=== PATIENT | female | born 1995 | race Two or more races ===

== ENCOUNTER 2017-06-05 21:19 | Inpatient (IN) | payer OTHER ==
--- NOTE | 2017-06-05 22:13 | C.PDOC ---
History Of Present Illness 21 yo female , 26 wks , w/o significant PMHx come in for evaluation of cold sx since yesterday associated with bodyaches, headache, fever, chills, runny nose, dry cough. Pt admits, " talk to OB over the phone and got RX: TAmiflu". Pt started Tamiflu since today AM, took 2 doses. Otherwise, pt denies severe headache, neck pain, rash, visual changes, drooling, trismus, denies CP, SOB, cough, wheezing, abd. pain, V/D, back pain, UTI sx, rash. Ambulate to Ed for evaluation, not in any apparent distress. Time Seen by Provider: 06/05/17 21:43 Chief Complaint (Nursing): Flu-like Symptoms History Per: Patient Onset/Duration Of Symptoms: Gradual Past Medical History Reviewed: Historical Data, Nursing Documentation, Vital Signs Vital Signs: Last Vital Signs Temp 98.3 F 06/06/17 05:30 Pulse 114 H 06/06/17 05:30 Resp 16 06/06/17 05:30 BP 96/58 L 06/06/17 05:30 Pulse Ox 98 06/06/17 05:30 - Medical History PMH: Anemia (iron deficiency) Surgical History: No Surg Hx Family History: States: No Known Family Hx - Social History Hx Tobacco Use: No Hx Alcohol Use: No Hx Substance Use: No - Immunization History Hx Tetanus Toxoid Vaccination: No Hx Influenza Vaccination: No Hx Pneumococcal Vaccination: No Review Of Systems Except As Marked, All Systems Reviewed And Found Negative. Constitutional: Positive for: Fever, Chills, Malaise ENT: Positive for: Nose Discharge, Nose Congestion, Throat Pain. Negative for: Ear Discharge Cardiovascular: Negative for: Chest Pain, Palpitations Respiratory: Positive for: Cough. Negative for: Shortness of Breath, Wheezing Gastrointestinal: Negative for: Nausea, Vomiting, Abdominal Pain, Diarrhea Genitourinary: Negative for: Dysuria, Incontinence Musculoskeletal: Negative for: Neck Pain, Back Pain Skin: Negative for: Rash Neurological: Positive for: Headache. Negative for: Weakness, Numbness, Altered Mental Status, Dizziness Physical Exam - Physical Exam Appears: Well, Non-toxic, No Acute Distress Skin: Normal Color, Warm, Dry, No Rash Head: Normacephalic Eye(s): bilateral: PERRL Ear(s): Bilateral: Normal Nose: No Flaring, Discharge Oral Mucosa: Moist, No Drooling Tongue: Normal Appearing Lips: Normal Appearing Throat: Erythema (mild B/L), No Exudate, No Drooling Neck: Trachea Midline, Supple, Other ((-) meningeal sign) Cardiovascular: Rhythm Regular, No Murmur, No JVD Respiratory: No Decreased Breath Sounds, No Accessory Muscle Use, No Stridor, No Wheezing Gastrointestinal/Abdominal: Soft, No Tenderness, No Distention, No Guarding, No Rebound, Other ((+) Gravid) Back: No CVA Tenderness Extremity: Normal ROM, No Pedal Edema, No Deformity, No Swelling Neurological/Psych: Oriented x3, Normal Speech ED Course And Treatment - Laboratory Results Result Diagrams: 06/05/17 22:40 06/05/17 22:40 O2 Sat by Pulse Oximetry: 97 Pulse Ox Interpretation: Normal Progress Note: On re-evaluation, pt resting comforatbly, not in any apparent distress. Fever improved, hemodynamicaly stable. Non-toxic. PUlseOx 97% RA. ENT: No acute findings. neck: SUpple, (-) meningeal sign. LUngs: CTA B/L, BS equal B/L. Abd: Gravid. Blood work review, anemia noted ( pt recall hx of anemia), dehydration. Influenza A (+). Case discussed with pt's OB and admission arranged to post- floor. Pt agree swith plan. Disposition - Disposition Disposition: HOSPITALIZED Disposition Time: 23:20 Condition: FAIR - Clinical Impression Clinical Impression: Influenza A, Dehydration
[2017-06-05] MEDS ORDERED: Sodium Chloride 0.9% 1,000 ML IV ONE (22:22)
[2017-06-05 22:42] LABS: BASO % 0.2 % (0.0-2.0); LYMPH # 1.6 K/uL (1.0-4.3); LYMPH % 16.5 % (20.0-40.0); MEAN CORPUSCULAR HEMOGLOBIN 22.7 pg (27.0-31.0); MEAN CORPUSCULAR HGB CONC 32.1 g/dL (33.0-37.0); MEAN PLATELET VOLUME 7.4 fL (7.2-11.7); MONO # 1.9 K/uL (0.0-0.8); MONO % 19.2 % (0.0-10.0); NEUT # 6.3 K/uL (1.8-7.0); NEUT % 64.1 % (50.0-75.0); NRBC % 0.1 % (0.0-2.0); RBC 4.2 Mil/uL (3.80-5.20); RED CELL DISTRIBUTION WIDTH 16.3 % (11.5-14.5); WHITE BLOOD COUNT 9.8 K/uL (4.8-10.8)
[2017-06-05] MEDS ORDERED: Sodium Chloride 0.9% 1,000 ML ONE (22:44)
[2017-06-05 22:46] LABS: HEMOGLOBIN 9.5 g/dL (11.0-16.0)
[2017-06-05 22:47] LABS: MEAN CELL VOLUME 70.5 fL (81.0-99.0)
[2017-06-05 22:48] LABS: SQUAMOUS EPITHIAL 5 /hpf (0-5); URINE BACTERIA MANY (<OCC); URINE BILIRUBIN NEGATIVE (NEGATIVE); URINE BLOOD NEGATIVE (NEGATIVE); URINE CLARITY Hazy (Clear); URINE COLOR Yellow (YELLOW); URINE GLUCOSE (UA) 1+ mg/dL (Normal); URINE LEUKOCYTE ESTERASE NEG Leu/uL (Negative); URINE NITRATE NEGATIVE (NEGATIVE); URINE PROTEIN NEGATIVE (NEGATIVE)
[2017-06-05 22:55] LABS: BLOOD UREA NITROGEN 5 mg/dL (7-17); CALCIUM 8.3 mg/dl (8.6-10.4); GFR AFRICAN-AMERICAN > 60; GFR NON-AFRICAN AMERICAN > 60
[2017-06-06] MEDS ORDERED: Sodium Chloride 0.9% 1,000 ML IV ONE ×2 (04:52→22:06)
[2017-06-06] MEDS ORDERED: Folic Acid 1 MG, Thiamine 100 MG, Multivitamin (MVI) 10 ML in Dextrose 5% In Water 1,00... IV ONE (05:45)
--- NOTE | 2017-06-06 06:09 | RAD ---
EXAM: XR Chest, 1 View CLINICAL HISTORY: 21 years old, female; Signs and symptoms; Fever; Patient HX: Pt 26 weeks ; Additional info: Fever in R/O [place] TECHNIQUE: Frontal view of the chest. COMPARISON: No relevant prior studies available. FINDINGS: Lungs: No consolidation. Pleural space: No pleural effusion. No pneumothorax. Heart: No cardiomegaly. Mediastinum: Unremarkable. Bones/joints: No acute fracture. IMPRESSION: No definite acute cardiopulmonary disease.
[2017-06-06] MEDS: Potassium Chl 40 mEq in D5-1/2 1,000 ML IV SCH ×3 (06:48→21:00)
--- NOTE | 2017-06-06 19:55 | CP.PCM.HP ---
History of Present Illness - History of Present Illness History of Present Illness: 21 y/o @ 26.3 wks [place] [facility] 09/09/17 c/o of fever, chills, body aches and non productive cough x 2 days, unimproved iwth tyenolon and over the counter medicaion. pt was started on tamiflu and advised to come to ER due to persisten fever and not feeling well. Upon arrival to ER pt complaiend of fever, chills, body aches, and non productive cough wiht sore throuat. pt denies any nause, vomiting, congestion, cp, sob, palpations, bowel or bladder complaints, no dairrhea. pt reports has poor appetite. pt denies any sick contacts, and declined flu vaccine. Ante: uncomplicated care OB: P0 [employer]: Denies hx of abnormla pap, fibroid, ovarian cyst, STI PMH: Denies PSH: Denies FHX: non contributoyr SHX: negative etoh/tobacco/drugs MEDS: PNV, Iron (d/c over past few days due to illness) NKDA Present on Admission - Present on Admission Any Indicators Present on Admission: No Review of Systems - Constitutional Constitutional: Fatigue. absent: As Per HPI, Anorexia, Chills, Daytime Sleepiness, Excessive Sweating, Fever, Frequent Falls, Headache, Increased Appetite, Lethargy, Malaise, Night Sweats, Snoring, Sleep Apnea, Weight Gain, Weight Loss, Weakness, Other - EENT Nose/Mouth/Throat: Sore Throat. absent: As Per HPI, Epistaxis, Nasal Congestion , Nasal Discharge, Nasal Obstruction, Nasal Trauma, Nose Pain, Post Nasal Drip, Sinus Pain, Sinus Pressure, Bleeding Gums, Change in Voice, Dental Pain, Dry Mouth, Dysphagia, Halitosis, Hoarsness, Lip Swelling, Mouth Lesions, Mouth Pain , Odynophagia, Throat Swelling, Tongue Swelling, Facial Pain, Neck Pain, Neck Mass, Other - Breasts Breasts: absent: As Per HPI, Change in Shape, Mass, Pain, Nipple Discharge, Nipple Inversion, Skin Changes, Swelling, Other - Cardiovascular Cardiovascular: absent: As Per HPI, Acrocyanosis, Chest Pain, Chest Pain at Rest , Chest Pain with Activity, Claudication, Diaphoresis, Dyspnea, Dyspnea on Exertion, Edema, Irregular Heart Rhythm, Pain Radiating to Arm/Neck/Jaw, Leg Edema, Leg Ulcers, Lightheadedness, Orthopnea, Palpitations, Paroxysmal Nocturnal Dyspnea, Pedal Edema, Radiating Pain, Rapid Heart Rate, Slow Heart Rate, Syncope, Other - Respiratory Respiratory: Cough. absent: As Per HPI, Dyspnea, Hemoptysis, Dyspnea on Exertion, Wheezing, Snoring, Stridor, Pain on Inspiration, Chest Congestion, Excessive Mucous Production, Change in Mucous Color, Pain with Coughing, Other - Gastrointestinal Gastrointestinal: absent: As Per HPI, Abdominal Pain, Belching, Bloating, Change in Bowel Habits, Change in Stool Character, Coffee Ground Emesis, Constipation, Cramping, Diarrhea, Dyspepsia, Dysphagia, Early Satiety, Excessive Flatus, Fecal Incontinence, Heartburn, Hematemesis, Hematochezia, Loose Stools, Melena, Nausea, Odynophagia, Temesmus, Vomiting, Other - Genitourinary Genitourinary: absent: As Per HPI, Change in Urinary Stream, Difficulty Urinating, Dysuria, Flank Pain, Hematuria, Pyuria, Nocturia, Urinary Incontinence, Urinary Frequency, Urinary Hesitance, Urinary Urgency, Voiding Freq/Small Amts, Freq UTI, Hx Renal/Bladder Calculi, Hx /Renal Surgery, Bladder Distension, Other - Reproductive: Female Reproductive:Female: Normal Menses - Musculoskeletal Musculoskeletal: Muscle Cramps, Muscle Weakness, Myalgias. absent: As Per HPI, Abnormal Gait, Arthralgias, Atrophy, Back Pain, Deformity, Joint Swelling, Limited Range of Motion, Loss of Height, Neck Pain, Numbness, Radiating Pain into Limb, Stiffness, Tingling, Other - Integumentary Integumentary: absent: As Per HPI, Acne, Alopecia, Bleeding Lesions, Change in Hair, Change in Nails, Change in Pigmentation, Changing Lesions, Dry Skin, Erythema, Furuncle, Hirsutism, Lesions, New Lesions, Non-Healing Lesions, Photosensitivity, Pruritus, Rash, Skin Pain, Skin Ulcer, Sores, Striae, Swelling , Unusual Bruising, Wounds, Jaundice, Other - Neurological Neurological: absent: As Per HPI, Abnormal Gait, Abnormal Hearing, Abnormal Movements, Abnormal Speech, Behavioral Changes, Burning Sensations, Confusion, Convulsions, Disequilibrium, Dizziness, Numbness, Focal Weakness, Frequent Falls , Headaches, Lack of Coordination, Loss of Vision, Memory Loss, Paresthesias, Radicular Pain, Restless Legs, Sensory Deficit, Syncope, Tingling, Tremor, Vertigo, Weakness, Other Visual Disturbances, Other - Endocrine Endocrine: absent: As Per HPI, Change in Body Appearance, Change in Libido, Cold Intolorance, Deepening of Voice, Excessive Sweating, Fatigue, Flushing, Heat Intolorance, Increase in Ring/Shoe/Hat Size, Palpitations, Polydipsia, Polyphagia, Polyuria, Other - Hematologic/Lymphatic Additional comments: +Fevers Past Patient History - Infectious Disease Hx of Infectious Diseases: None - Past Medical History & Family History Past Medical History?: No Past Family History: Reviewed and not pertinent - Past Social History Smoking Status: Never Smoked Chewing Tobacco Use: No Cigar Use: No Alcohol: None Home Situation {Lives}: With Family Domestic Violence: Negative - CARDIAC Hx Cardiac Disorders: No - HEMATOLOGICAL/ONCOLOGICAL Hx Anemia: Yes (iron deficiency) - PSYCHIATRIC Hx Substance Use: No Meds Allergies/Adverse Reactions: Allergies Allergy/AdvReac Type Severity Reaction Status Date / Time No Known Allergies Allergy Unverified 06/05/17 21:40 Physical Exam - Constitutional Appears: Well, Non-toxic - Head Exam Head Exam: ATRAUMATIC, NORMAL INSPECTION - Eye Exam Eye Exam: EOMI, Normal appearance - ENT Exam ENT Exam: Mucous Membranes Dry, Normal Oropharynx - Neck Exam Neck exam: Positive for: Normal Inspection - Respiratory Exam Respiratory Exam: Clear to Auscultation Bilateral, NORMAL BREATHING PATTERN - Cardiovascular Exam Cardiovascular Exam: REGULAR RHYTHM, +S1, +S2 - GI/Abdominal Exam GI & Abdominal Exam: Normal Bowel Sounds, Soft Additional comments: non tender, no guarding, no rebound tenderness, no rigidty, +BS +FHR 150bpm VE:delcined - Extremities Exam Extremities exam: Negative for: calf tenderness, full ROM, joint swelling, normal capillary refill, normal inspection, pedal edema, tenderness, pedal pulses present - Back Exam Back exam: NORMAL INSPECTION - Neurological Exam Neurological exam: Alert, CN II-XII Intact, Oriented x3 - Psychiatric Exam Psychiatric exam: Normal Affect, Normal Mood - Skin Skin Exam: Dry, Intact, Normal Color, Warm Results - Vital Signs Recent Vital Signs: Last Vital Signs Temp 98.8 F 06/06/17 12:47 Pulse 114 H 06/06/17 12:47 Resp 18 06/06/17 12:47 BP 101/56 L 06/06/17 12:47 Pulse Ox 97 06/06/17 12:47 - Labs Result Diagrams: 06/05/17 22:40 06/05/17 22:40 Labs: Laboratory Results - last 24 hr 06/05/17 06/05/17 06/05/17 22:40 22:40 22:40 WBC 9.8 RBC 4.20 Hgb 9.5 L D Hct 29.6 L MCV 70.5 L D MCH 22.7 L MCHC 32.1 L RDW 16.3 H Plt Count 266 MPV 7.4 Neut % (Auto) 64.1 Lymph % (Auto) 16.5 L [place] % (Auto) 19.2 H Eos % (Auto) 0.0 Baso % (Auto) 0.2 Neut # 6.3 Lymph # 1.6 [place] # 1.9 H Eos # 0.0 Baso # 0.0 Sodium 129 L Potassium 3.2 L Chloride 99 Carbon Dioxide 21 L Anion Gap 12 BUN 5 L Creatinine 0.6 L Est GFR ( Amer) > 60 Est GFR (Non-Af Amer) > 60 Random Glucose 131 H Calcium 8.3 L Urine Color Urine Clarity Urine pH Ur Specific [place] Urine Protein Urine Glucose (UA) Urine Ketones Urine Blood Urine Nitrate Urine Bilirubin Urine Urobilinogen Ur Leukocyte Esterase Urine WBC (Auto) Urine RBC (Auto) Ur Squamous Epith Cells Urine Bacteria Urine HCG, Qual Influenza Typ A,B (EIA) Pos for influenza a H 06/05/17 06/05/17 22:40 22:41 WBC RBC Hgb Hct MCV MCH MCHC RDW Plt Count MPV Neut % (Auto) Lymph % (Auto) [place] % (Auto) Eos % (Auto) Baso % (Auto) Neut # Lymph # [place] # Eos # Baso # Sodium Potassium Chloride Carbon Dioxide Anion Gap BUN Creatinine Est GFR ( Amer) Est GFR (Non-Af Amer) Random Glucose Calcium Urine Color Yellow Urine Clarity Hazy Urine pH 6.0 Ur Specific [place] 1.011 Urine Protein Negative Urine Glucose (UA) 1+ Urine Ketones 1+ H Urine Blood Negative Urine Nitrate Negative Urine Bilirubin Negative Urine Urobilinogen 2.0 H Ur Leukocyte Esterase Neg Urine WBC (Auto) 5 Urine RBC (Auto) 4 H Ur Squamous Epith Cells 5 Urine Bacteria Many H Urine HCG, Qual Positive Influenza Typ A,B (EIA) Assessment & Plan (1) Influenza A Assessment and Plan: 1. Admit to [employer] 2. Tamiflu 75mg BID 3. IVH: Banana bag @ 125cc/hr 4. Kdhur x 1 5. AM Labs: CBC, CMP, UA 6. Liquid diet, Advance as tolerated 7. FHR Doppler q shift Status: Acute
[2017-06-06] MEDS ORDERED: guaiFENesin 100 mg/5 ml Syrup UD PO PRN (20:06)
[2017-06-06 20:57] VITALS: RESP 20
[2017-06-07] MEDS: Potassium Chl 40 mEq in D5-1/2 1,000 ML IV SCH ×2 (04:57→13:37)
[2017-06-07 06:53] LABS: BASO % 0.3 % (0.0-2.0); EOS % 0.5 % (0.0-4.0); HEMOGLOBIN 9.2 g/dL (11.0-16.0); LYMPH # 1.8 K/uL (1.0-4.3); LYMPH % 32.2 % (20.0-40.0); MEAN CELL VOLUME 70.7 fL (81.0-99.0); MEAN CORPUSCULAR HEMOGLOBIN 23.3 pg (27.0-31.0); MEAN PLATELET VOLUME 7.7 fL (7.2-11.7); MONO # 0.5 K/uL (0.0-0.8); MONO % 8.8 % (0.0-10.0); NEUT # 3.3 K/uL (1.8-7.0); NEUT % 58.2 % (50.0-75.0); RBC 3.95 Mil/uL (3.80-5.20); RED CELL DISTRIBUTION WIDTH 16.9 % (11.5-14.5); WHITE BLOOD COUNT 5.6 K/uL (4.8-10.8)
[2017-06-07 07:14] LABS: ALB/GLOB RATIO 0.8 (1.0-2.1); ALBUMIN 2.8 g/dL (3.5-5.0); ALT/SGPT 25 U/L (9-52); AST/SGOT 19 U/L (14-36); BLOOD UREA NITROGEN 3 mg/dL (7-17); CALCIUM 8.2 mg/dl (8.6-10.4); GFR AFRICAN-AMERICAN > 60; GFR NON-AFRICAN AMERICAN > 60
[2017-06-07 10:47] LABS: SQUAMOUS EPITHIAL 3 /hpf (0-5); URINE BACTERIA MOD (<OCC); URINE BILIRUBIN NEGATIVE (NEGATIVE); URINE BLOOD NEGATIVE (NEGATIVE); URINE CLARITY Hazy (Clear); URINE COLOR Yellow (YELLOW); URINE GLUCOSE (UA) 1+ mg/dL (Normal); URINE LEUKOCYTE ESTERASE NEG Leu/uL (Negative); URINE NITRATE NEGATIVE (NEGATIVE); URINE PROTEIN NEGATIVE (NEGATIVE); URINE UROBILINOGEN NORMAL mg/dL (0.2-1.0)
[2017-06-07 12:03] VITALS: BP 99/65; PULSE 104; TEMP 97.3; O2SAT 99
== END 2017-06-07 17:15 | disposition home or self-care (01) | DRG 781 ==
LOC: C.ER 21:19 → C.4M 23:21 → C.9E 23:21 → C.5S 06-06 20:06
PROVIDERS: ADMIT Obstetrics & Gynecology; ATTEND Obstetrics & Gynecology
DX: O26.892 Other specified pregnancy related conditions, second trimester (principal); E86.0 Dehydration; J10.1 Influenza due to other identified influenza virus with other respiratory manifestations; Z3A.26 26 weeks gestation of pregnancy

== ENCOUNTER 2017-08-27 19:55 | Emergency (ER) | payer OTHER ==
[2017-08-28 01:08] VITALS: BP 113/67; PULSE 96; RESP 20; TEMP 98.5
== END 2017-08-27 20:50 | disposition home or self-care (01) ==
LOC: C.EROB 19:55
DX: O60.03 Preterm labor without delivery, third trimester (principal); Z3A.38 38 weeks gestation of pregnancy

== ENCOUNTER 2017-08-30 22:58 | Inpatient (IN) | payer OTHER ==
[2017-08-30] MEDS ORDERED: Lactated Ringer's 1,000 ML IV SCH (23:45)
--- NOTE | 2017-08-30 23:47 | OBHP ---
Datetime: 08/30/2017 23:35 IP Adm Impression: Term, intrauterine IP Admit Plan: Observation/Evaluation Admit Comment, IP Provider: 21 yo g1 edc 09/08 presents w/ c/o painful ctxs since 10:30 pm. denies de creased fm, srom, or bleedng. preg sig for GDMA1 pmhx: denies pshx: surgical extraction of wax from ear nkda medic: pnv shx : denies etoh, illicit drug use or tobacco I: 38.5wks Labor eval P: pt d/w dr vogel observe overnight may have nubain with phenergan. Pelvic Type - PN: Adequate Extremities - PN: Normal Abdomen - PN: Normal Heart - PN: Normal Neurologic - PN: Normal HEENT - PN: Normal General - PN: Normal Presentation-Admit: Vertex FHR - Baseline A Provider: 130 EGA AdmitDate IP: 38.5 Vital Signs Provider: Within Normal Limits IP Chief Complaint: Uterine contractions NICHD Variability Prov Fetus A: Moderate 6-25bpm NICHD Accel Fetus A IP Provider: [id number] FHR Category Provider Fetus A: Category I NICHD Decel Fetus A IP Provider: None Dilatation, Provider: 3-4 Effacement, Provider: 90 Station, Provider: -1 Genitourinary Exam: Normal Datetime: 08/27/2017 20:33 Breast - PN: Normal Lungs - PN: Normal Thyroid - PN: Normal Weight - Estimated: 5lbs per pt Membranes, Provider: Intact Contraction Comments Provider: none Gestation - Est Wks by US: 38.0 Pool Provider: Negative Nitrazine Provider: Negative IP Hx Assessment: The History has been Reviewed and is Current
[2017-08-30 23:49] VITALS: BMI 31.8
[2017-08-30] MEDS ORDERED: Nalbuphine 20 mg/ml Inj (1 ml) IVP PRN (23:51)
[2017-08-30] MEDS ORDERED: Promethazine 12.5 mg/10 ml Syrup PO STA (23:58)
[2017-08-31] MEDS ORDERED: Penicillin G 5 Million Unit Vial IVPB ONE ×2 (00:46)
[2017-08-31 00:54] LABS: BASO # 0.1 K/uL (0.0-0.2); BASO % 0.4 % (0.0-2.0); EOS % 0.1 % (0.0-4.0); HEMOGLOBIN 11.9 g/dL (11.0-16.0); LYMPH # 2.3 K/uL (1.0-4.3); LYMPH % 13.8 % (20.0-40.0); MEAN CELL VOLUME 75.3 fL (81.0-99.0); MEAN CORPUSCULAR HEMOGLOBIN 24.8 pg (27.0-31.0); MEAN CORPUSCULAR HGB CONC 32.9 g/dL (33.0-37.0); MEAN PLATELET VOLUME 7.9 fL (7.2-11.7); MONO # 0.9 K/uL (0.0-0.8); MONO % 5.6 % (0.0-10.0); NEUT # 13.2 K/uL (1.8-7.0); NEUT % 80.1 % (50.0-75.0); RBC 4.78 Mil/uL (3.80-5.20); RED CELL DISTRIBUTION WIDTH 17.8 % (11.5-14.5); WHITE BLOOD COUNT 16.5 K/uL (4.8-10.8)
[2017-08-31 01:12] LABS: ALB/GLOB RATIO 0.9 (1.0-2.1); ALBUMIN 3.4 g/dL (3.5-5.0); ALT/SGPT 25 U/L (9-52); AST/SGOT 18 U/L (14-36); BLOOD UREA NITROGEN 12 mg/dL (7-17); CALCIUM 8.9 mg/dl (8.6-10.4); GFR AFRICAN-AMERICAN > 60; GFR NON-AFRICAN AMERICAN > 60
[2017-08-31] MEDS ORDERED: Lidocaine 2% Inj (20ml) ONE (01:12)
--- NOTE | 2017-08-31 01:14 | OBADHP ---
Datetime: 08/30/2017 23:35 Admit Comment, IP Provider: 21 yo g1 edc 09/08 presents w/ c/o painful ctxs since 10:30 pm. denies de creased fm, srom, or bleedng. preg sig for GDMA1 pmhx: denies pshx: surgical extraction of wax from ear nkda medic: pnv shx : denies etoh, illicit drug use or tobacco I: 38.5wks Labor eval P: pt d/w dr voegl observe overnight may have nubain with phenergan. pt spontalusly and rapdily progrssed from 7-->9cm to 10cm admit anstipc ensvd con tcurren gtmagnet Pelvic Type - PN: Adequate Extremities - PN: Normal Abdomen - PN: Normal Heart - PN: Normal Neurologic - PN: Normal HEENT - PN: Normal General - PN: Normal Presentation-Admit: Vertex FHR - Baseline A Provider: 130 Vital Signs Provider: Within Normal Limits IP Chief Complaint: Uterine contractions NICHD Variability Prov Fetus A: Moderate 6-25bpm NICHD Accel Fetus A IP Provider: [id number] FHR Category Provider Fetus A: Category I NICHD Decel Fetus A IP Provider: None Dilatation, Provider: 3-4 Effacement, Provider: 90 Station, Provider: -1 Genitourinary Exam: Normal EGA AdmitDate IP: 38.5 IP Adm Impression: Term, intrauterine IP Admit Plan: Observation/Evaluation Datetime: 08/27/2017 20:33 Breast - PN: Normal Lungs - PN: Normal Thyroid - PN: Normal Weight - Estimated: 5lbs per pt Membranes, Provider: Intact Contraction Comments Provider: none Gestation - Est Wks by US: 38.0 Pool Provider: Negative Nitrazine Provider: Negative IP Hx Assessment: The History has been Reviewed and is Current
[2017-08-31 02:03] LABS: PH,URINE 6.5 (5.0-8.0); URINE BILIRUBIN NEGATIVE (NEGATIVE); URINE BLOOD SMALL (NEGATIVE); URINE CLARITY Clear (Clear); URINE COLOR YELLOW (YELLOW); URINE GLUCOSE (UA) NEGATIVE (Normal); URINE LEUKOCYTE ESTERASE NEGATIVE Leu/uL (Negative); URINE PROTEIN NEGATIVE (NEGATIVE); URINE UROBILINOGEN Normal mg/dL (0.2-1.0)
[2017-08-31 02:04] LABS: URINE BACTERIA RARE (<OCC)
[2017-08-31] MEDS ORDERED: Oxycodone/Acetaminophen 5/325 mg Tab PO PRN (02:07)
--- NOTE | 2017-08-31 02:07 | OBDS ---
DELIVERY PERSONNEL Delivery Doctor: Srini Smith MD Ssis Architect: Ellen Thomas RN MATERNAL INFORMATION Delivery Anesthesia: None Medications in Delivery: PITOCIN 20 UNITS IN LR Estimated Blood Loss (ml): 300 Placenta Cultured: No Maternal Complications: None Provider Comments: pt was fully dilated and pushing, atruamtic, spontaneous delivery of head, tight nuchal x 2 reduced, atruamic, spontanoeus delivery of nateiro followed by poserio shoulder followed b y delier of body. good cry. umbilca cord clamped adn cut. baby handed to mother on abdomen with rn as sistnace. cord blood colected. spotnaeous delivery of intact plaent with membrneas. fundus firm. Goo dhemostais, second degree perineal laceraton noted and repaired iwth 2-0 and 3-0 chromic suture. goo dhemotsis, no compication live male ifnat agpar 9, 9 weight of 5lbs 15 ounces ebl 300ml LABOR SUMMARY EDC: 09/08/2017 00:00 No. Babies in Womb: 1 Attempted: No Labor Anesthesia: None LABOR INFORMATION Reason for Induction: Not Applicable Onset of Labor: 08/30/2017 22:30 Complete Dilatation: 08/31/2017 00:53 Oxytocin: N/A Group B Beta Strep: Negative Antibiotics # of Doses: 1 Antibiotics Time of Last Dose: 0:44 Steroids Given: None Reason Steroids Not Administered: Not Applicable MEMBRANES Membranes Rupture Method: Artificial Rupture of Membranes: 08/31/2017 01:16 Length of Rupture (hrs): 0.10 Amniotic Fluid Color: Light Meconium Amniotic Fluid Amount: Moderate Amniotic Fluid Odor: Normal STAGES OF LABOR Stage 1 hrs: 2 Stage 1 min: 23 Stage 2 hrs: 0 Stage 2 min: 29 Stage 3 hrs: 0 Stage 3 min: 6 Total Time in Labor hrs: 2 Total Time in Labor min: 58 VAGINAL DELIVERY Episiotomy: None Laceration Extension: Second Degree Laceration Type: Perineal Laceration Repair: Yes Initial Vag Sponge Count: 10+1Lap Final Vag Sponge Count: 20+1Lap Initial Vag Sharps Count: 0 Final Vag Sharps Count: 3 Sponge Count Correct: Yes; Vaginal Sweep Performed Sharps Count Correct: Yes Count Comment: correct BABY A INFORMATION Delivery Date/Time: 08/31/2017 01:22 Method of Delivery: Vaginal Born in Route : No : N/A Forceps: N/A Vacuum Extraction: N/A Shoulder Dystocia : No SHOULDER DYSTOCIA BABY A Delivery Date/Time: 08/31/2017 01:22 PRESENTATION/POSITION BABY A Presentation: Cephalic Cephalic Presentation: Vertex Vertex Position: Right Occipital Anterior Breech Presentation: N/A PLACENTA INFORMATION BABY A Placenta Delivery Time : 08/31/2017 01:28 Placenta Method of Delivery: Spontaneous Placenta Status: Delivered SCORES BABY A Heart Rate 1 min: >100 bpm Resp Effort 1 min: Good Cry Reflex Irritability 1 min: Cough or Sneeze or Pulls Away Muscle Tone 1 min: Active Motion Color 1 min: Body [place], Extremities Blue SCORE 1 MIN: 9 Heart Rate 5 min: >100 bpm Resp Effort 5 min: Good Cry Reflex Irritability 5 min: Cough or Sneeze or Pulls Away Muscle Tone 5 min: Active Motion Color 5 min: Body [place], Extremities Blue SCORE 5 MIN: 9 INFANT INFORMATION BABY A Gestational Age at Delivery: 38.6 Gestational Status: Term Infant Outcome : Liveborn Condition : Stable Infant Sex: Male IDENTIFICATION/MEDS BABY A ID Band Number: [id number] ID Band Location: Left Leg; Left Arm Sensor Applied: Yes Sensor Number: [id number] Sensor Location : Cord Clamp Vitamin K Given : Aquamephyton 0.5 mg IM; Left Thigh Erythromycin Given: Given Both Eyes WEIGHT/LENGTH BABY A Infant Birthweight (gms): 2685 Weight (lb): 5 Infant Weight (oz): 15 Length Inches: 19.50 Length cms: 49.5 CORD INFORMATION BABY A No. Cord Vessels: 3 Nuchal Cord : Around Neck x1, Loose Cord Blood Taken: Yes Banking/Donate Info: CORD BLOOD COLLECTED Infant Suction: None ASSESSMENT BABY A Infant Complications: None Physical Findings at Delivery: Within Normal Limits Infant Respirations: Appears Normal Maintenance Job Titles/ALS Called : No Infant Care By: DR MEJIA Transferred To: Remains with Mother
[2017-08-31] MEDS: Oxycodone/Acetaminophen 5/325 mg Tab PO PRN ×2 (05:54→14:04)
[2017-08-31] MEDS: Benzocaine/Menthol 20%-0.5% Topical Spray (60 ml) TOP PRN (06:27)
[2017-08-31 06:39] VITALS: RESP 20
[2017-08-31] MEDS: Multiple Vitamins Tab PO SCH (09:56)
[2017-08-31 11:33] LABS: BASO % 0.1 % (0.0-2.0); HEMOGLOBIN 9.8 g/dL (11.0-16.0); LYMPH # 1.9 K/uL (1.0-4.3); LYMPH % 11.4 % (20.0-40.0); MEAN CELL VOLUME 75.4 fL (81.0-99.0); MEAN CORPUSCULAR HGB CONC 33.2 g/dL (33.0-37.0); MEAN PLATELET VOLUME 7.8 fL (7.2-11.7); MONO % 6.2 % (0.0-10.0); NEUT # 13.6 K/uL (1.8-7.0); NEUT % 82.3 % (50.0-75.0); RBC 3.93 Mil/uL (3.80-5.20); RED CELL DISTRIBUTION WIDTH 17.8 % (11.5-14.5); WHITE BLOOD COUNT 16.5 K/uL (4.8-10.8)
[2017-08-31 11:50] LABS: ALB/GLOB RATIO 0.9 (1.0-2.1); ALBUMIN 2.8 g/dL (3.5-5.0); ALT/SGPT 18 U/L (9-52); AST/SGOT 28 U/L (14-36); BLOOD UREA NITROGEN 8 mg/dL (7-17); CALCIUM 8.8 mg/dl (8.6-10.4); GFR AFRICAN-AMERICAN > 60; GFR NON-AFRICAN AMERICAN > 60
[2017-09-01 08:38] LABS: BASO # 0.1 K/uL (0.0-0.2); BASO % 0.5 % (0.0-2.0); EOS # 0.1 K/uL (0.0-0.7); EOS % 0.6 % (0.0-4.0); HEMOGLOBIN 10.6 g/dL (11.0-16.0); LYMPH # 3.6 K/uL (1.0-4.3); LYMPH % 24.6 % (20.0-40.0); MEAN CELL VOLUME 76.3 fL (81.0-99.0); MEAN CORPUSCULAR HEMOGLOBIN 25.2 pg (27.0-31.0); MEAN CORPUSCULAR HGB CONC 33.1 g/dL (33.0-37.0); MEAN PLATELET VOLUME 7.7 fL (7.2-11.7); MONO # 1.1 K/uL (0.0-0.8); MONO % 7.8 % (0.0-10.0); NEUT # 9.7 K/uL (1.8-7.0); NEUT % 66.5 % (50.0-75.0); RBC 4.2 Mil/uL (3.80-5.20); RED CELL DISTRIBUTION WIDTH 18.2 % (11.5-14.5); WHITE BLOOD COUNT 14.7 K/uL (4.8-10.8)
[2017-09-01] MEDS: Multiple Vitamins Tab PO SCH (09:47)
[2017-09-01] MEDS: Oxycodone/Acetaminophen 5/325 mg Tab PO PRN (21:31)
[2017-09-02 08:13] VITALS: BP 96/63; PULSE 82; TEMP 97.7; O2SAT 99
[2017-09-02] MEDS: Multiple Vitamins Tab PO SCH (09:46)
[2017-09-02] MEDS: Benzocaine/Menthol 20%-0.5% Topical Spray (60 ml) TOP PRN (12:10)
== END 2017-09-02 14:00 | disposition home or self-care (01) | DRG 775 ==
LOC: C.EROB 22:58 → C.4D 08-31 00:32 → C.4M 08-31 03:21
PROVIDERS: ADMIT Obstetrics & Gynecology; ATTEND Obstetrics & Gynecology
PROC: 10E0XZZ Delivery of Products of Conception, External Approach (ICD-10-PCS; principal; 2017-08-31)
PROC: 0KQM0ZZ Repair Perineum Muscle, Open Approach (ICD-10-PCS; 2017-08-31)
DX: O69.81X0 Labor and delivery complicated by cord around neck, without compression, not applicable or unspecified (principal); O70.1 Second degree perineal laceration during delivery; Z3A.38 38 weeks gestation of pregnancy; Z37.0 Single live birth